=== PATIENT | male | born 1980 | race Hispanic/Latino ===

== ENCOUNTER 2018-06-05 11:23 | Emergency (ER) | payer OTHER ==
[~2018-06-05] VITALS: Ht 182.9 cm; Wt 68.0 kg
[2018-06-05 12:38] LABS: PLATELET COUNT 259 K/uL (142-355)
[2018-06-05 12:46] LABS: POTASSIUM 4.2 mmol/L (3.6-5.2)
[2018-06-05 13:48] VITALS: BP 128/78; TEMP 98
== END 2018-06-05 13:50 | disposition home or self-care (01) ==
LOC: ED 11:23
DX: F41.9 Anxiety disorder, unspecified (principal); F11.20 Opioid dependence, uncomplicated
CPT/HCPCS: 80053; 80307; 81000; 84443; 85027; 99283